=== PATIENT | male | born 1980 | race Caucasian/White ===

== ENCOUNTER 2021-11-25 22:29 | Emergency (ER) | payer SELFPAY ==
[~2021-11-25] VITALS: Ht 165.1 cm; Wt 74.4 kg
[2021-11-25 23:00] VITALS: BP 135/72
[2021-11-25] MEDS ORDERED: IBUP-1955 PO (23:10)
[2021-11-25] MEDS ORDERED: GELATIN SPONGE,ABSORBABLE 1 SPONGE SPONGE TP ONE ×2 (23:12→23:21)
[2021-11-25] MEDS ORDERED: TDAP [DIPH/PERTUSSIS/TET] 0.5 ML VIAL IM ONE ×2 (23:14→23:30)
[2021-11-25] MEDS ORDERED: HYDROCODONE/APAP 5/325MG TABLET ONE (23:14)
[2021-11-25] MEDS ORDERED: HYDROCODONE/APAP 5/325MG TABLET PO ONE (23:30)
--- NOTE | 2021-11-25 23:34 | NUR ---
Patient discharged to home in stable condition. Written and verbal after care instructions given. Patient verbalizes understanding of instruction.
== END 2021-11-25 23:35 | disposition home or self-care (01) ==
LOC: ER 22:41
DX: S61.011A Laceration without foreign body of right thumb without damage to nail, initial encounter (principal); W26.0XXA Contact with knife, initial encounter; Y93.89 Activity, other specified; Y92.89 Other specified places as the place of occurrence of the external cause; Y99.8 Other external cause status
CPT/HCPCS: 90715